=== PATIENT | female | born 1990 | race Caucasian/White ===

== ENCOUNTER 2025-03-15 19:11 | Emergency (ER) | payer OTHER, SELFPAY ==
[2025-03-15 19:20] VITALS: BP 168/119; PULSE 109; TEMP 37.2; O2SAT 97; BMI 50.1
[2025-03-15 19:31] LABS: Bilirubin Urine NEGATIVE (NEGATIVE); Blood Urine TRACE-I (NEGATIVE); Clarity Urine CLEAR (CLEAR); Color Urine LT. YELLOW (YELLOW); Glucose Urine UA NEGATIVE (NEGATIVE); Ketones Urine TRACE mg/dL (NEGATIVE); Leukocyte Esterase Urine MODERATE (NEGATIVE); Nitrite Urine NEGATIVE (NEGATIVE); Protein Urine 30 mg/dL (NEG/TRACE); Specific Gravity Urine 1.025 (1.005-1.025)
[2025-03-15 19:32] LABS: Urine Microscopic Indicated YES
--- NOTE | 2025-03-15 19:45 | ED_ITS ---
HPI - Female Genitourinary General Chief complaint: Urogenital-Female Stated complaint: UTI Time Seen by Provider: 03/15/25 19:13 Source: patient Mode of arrival: walk-in Limitations: no limitations History of Present Illness HPI Narrative: Patient is a otherwise healthy 34-year-old female presenting to the emergency department for vaginal pain. Patient stated that she went to an urgent care yesterday and was diagnosed with a urinary tract infection. She stated nobody did a pelvic exam on her any additional testing. She states that her vaginal area is extremely painful and feels like there is glass coming out. Patient states that she was given Cipro for urinary tract infection yesterday and she is taken 3 doses since then but is not having any relief. In fact, she feels like it is getting worse. Patient denies any new sexual partners. Unknown what makes worse. Nothing makes it better. Patient states is uncomfortable even just to sit. She has not taken anything for the pain. She has left-sided low back pain. She states that she has had subjective fever and chills. Related Data Home Medications ?Medication ?Instructions ?Recorded ?Confirmed ciprofloxacin HCl 250 mg tablet mg 03/15/25 Previous Rx's ?Medication ?Instructions ?Recorded doxycycline monohydrate 100 mg 100 mg PO Q12H 14 days #28 caps 03/15/25 capsule hydrocodone 5 mg-acetaminophen 325 1 tab PO Q4H PRN pa in #14 tabs 03/15/25 mg tablet hydrocodone 5 mg-acetaminophen 325 1 tab PO Q4H PRN pa in #14 tabs 03/15/25 mg tablet lidocaine HCl 2 % mucosal solution 1 applic mucous mem brane TID-QID 03/15/25 (Lidocaine Viscous) PRN pain #100 mL Allergies Allergy/AdvReac Type Severity Reaction Status Date / Time Sulfa (Sulfonamide Allergy Mild Confusion Verified 03/15/25 19:20 Antibiotics) Review of Systems ROS Status of ROS 10 or more systems reviewed and unremark able except as noted in history and below PFSH PFSH Social History Little interest or pleasure in doing things: not at all Feeling down, depressed, or hopeless: not at all Exam Narrative Exam Narrative: Prior to examining the patient, I have washed with hospital approved and provided Antiseptic Hand O And M Supervisor and have also applied gloves.? Prior to touching the patient, I asked for consent to examine the patient.? General: Alert and oriented, well nourished, mild distress. Eye: PERRL, EOMI, normal conjunctiva. HENT: Normocephalic, normal hearing, moist oral mucosa, no scleral icterus Lungs: Clear to auscultation and percussion, non-labored respiration. Heart: Normal rate, regular rhythm, no murmur, gallop or edema. Abdomen: Soft, non-tender, non-distended, normal bowel sounds, no masses. Genitourinary: The patient had right sided inguinal lymphadenitis but no lymphadenopathy. The patient had normal external female genitalia. At the introitus however there were numerous ulcerations all over the introitus. There was purulence present. Is exquisitely tender. I do not appreciate any vesicular lesions. Musculoskeletal: Normal range of motion and strength, no tenderness or swelling. Skin: Skin is warm, dry and pink, no rashes or lesions. Neurologic: Awake, alert, and oriented X3, CN II-XII intact. Psychiatric: Cooperative, appropriate mood and affect.? Following the conclusion of the examination, I have washed my hands thoroughly after removing examination gloves. Constitutional Vital Signs, click to edit/add: Last Vital Signs Temp 98.9 F 03/15/25 19:20 Pulse 109 H 03/15/25 19:20 Resp 19 03/15/25 19:20 BP 168/119 H 03/15/25 19:20 Pulse Ox 97 03/15/25 19:20 O2 Del Method Room Air 03/15/25 19:20 Course Course Hospital Course: Patient provided urine. She does have leukocytes present in the urine. The patient had a speculum exam. I informed her that there was ulcerations in her introitus area. Were going to give her Rocephin 500 mg IM, she is to to continue to take her ciprofloxacin at home. We can add doxycycline to her treatment regimen. We will give her [place] 7.5/325 while she is here and then we will call in a prescription for doxycycline, [place] as well as topical lidocaine. She is abstain from sex until these go away. She is aware that she should call her gynecologic care team tomorrow morning for an appointment later in the week. Reevaluation(s) Reevaluation #1: I had an opportunity to discuss with her gynecologic care team. They indicated that the patient should call Sunday for an appointment and they will likely follow-up with her on . Time: 19:49 Reevaluation #2: Speculum exam, tolerated well. Time: 20:39 Vital Signs Vital signs: Vital Signs Temperature 98.9 F 03/15/25 19:20 Pulse Rate 109 H 03/15/25 19:20 Respiratory Rate 19 03/15/25 19:20 Blood Pressure 168/119 H 03/15/25 19:20 Pulse Oximetry 97 03/15/25 19:20 Oxygen Delivery Method Room Air 03/15/25 19:20 Temperature 98.9 F 03/15/25 19:20 Pulse Rate 109 H 03/15/25 19:20 Respiratory Rate 19 03/15/25 19:20 Blood Pressure 168/119 H 03/15/25 19:20 Pulse Oximetry 97 03/15/25 19:20 Oxygen Delivery Method Room Air 03/15/25 19:20 MDM - Female Genitourinary MDM Narrative Medical decision making narrative: In summary, patient is a 34-year-old female with profound dysuria and vaginal pain. In further cognitive consideration the case, the patient admits that she had her use some flavored lubricant recently. Otherwise there has been no different toys or other exposures. Patient is aware that the swabs are all send out and that if we do not contact her there is nothing concerning for a sexually transmitted disease. Differential Diagnosis Differential diagnosis: Likely urinary tract infection, bacterial vaginosis, trichomoniasis, ovarian cyst, vaginitis, cystitis and dysmenorrhea Medical Records Attestation: I reviewed the patient's medical records. Lab Data Attestation: I reviewed the patient's lab results. Labs: Lab Results 03/15/25 Range/Units 19:20 Urine Color Lt. yellow (YELLOW) Urine Clarity Clear (CLEAR) Urine pH 6.0 (5.0-9.0) Ur Specific [place] 1.025 (1.005-1.025) Urine Protein 30 A (NEG/TRACE) mg/dL Urine Glucose (UA) Negative (NEGATIVE) mg/dL Urine Ketones Trace A (NEGATIVE) mg/dL Urine Occult Blood Trace-i (NEGATIVE) Urine Nitrite Negative (NEGATIVE) Urine Bilirubin Negative (NEGATIVE) Urine Urobilinogen 2.0 A (0.2-1.0) EU/dL Ur Leukocyte Esterase Moderate A (NEGATIVE) Urine RBC 2-5 A (0-2) #/HPF Urine WBC 5-10 A (NONE SEEN) #/HPF Ur Squamous Epith Cells Moderate A (NONE/RARE) #/LPF Urine Crystals Seen A (None Seen) #/HPF Amorphous Sediment Few Urine Bacteria Moderate A (NONE SEEN) #/HPF Urine Casts None seen (NONE SEEN) #/LPF Urine Mucus None seen (NONE SEEN) Ur Culture Indicated? Yes-[facility] [place] Discharge Plan Discharge Chief Complaint: Urogenital-Female Clinical Impression: Vaginitis Patient Disposition: Home, Self-Care Time of Disposition Decision: 20:42 Condition: Good Mode of Transportation: Private Vehicle Prescriptions / Home Meds: New hydrocodone-acetaminophen 5-325 mg tablet 1 tab PO Q4H PRN (Reason: pain) Qty: 14 0RF hydrocodone-acetaminophen 5-325 mg tablet 1 tab PO Q4H PRN (Reason: pain) Qty: 14 0RF lidocaine HCl [Lidocaine Viscous] 2 % solution 1 applic mucous membrane TID-QID PRN (Reason: pain) Qty: 100 0RF doxycycline monohydrate 100 mg capsule 100 mg PO Q12H 14 Days Qty: 28 0RF No Action ciprofloxacin HCl 250 mg tablet Print Language: Faroese Referrals: [facility] [Primary Care Provider, Family Practice] - 1 week Procedures ED Procedure Instructions Procedures Procedures: Patient had a supervised speculum exam with her room nurse. It was uneventful. Patient was examined and then cleaning supplies were offered to the patient and she was permitted to dress.20:39
[2025-03-15 19:50] LABS: Amorphous Sediment Urine FEW; Bacteria Urine MODERATE #/HPF (NONE SEEN); Cast Seen? NONE SEEN #/LPF (NONE SEEN); Crystals Seen? Seen #/HPF (None Seen); Mucus Urine NONE SEEN (NONE SEEN); Squamous Epithelial Cell Urine MODERATE #/LPF (NONE/RARE); Urine Culture Indicated YES-FRMC
[2025-03-15] MEDS: CEFTRIAXONE 500 MG, LIDOCAINE HCL/PF 1 ML IM (20:54)
[2025-03-15] MEDS: HYDROCODONE/ACETAMINOPHEN 7.5-325 MG/15 ML CUP 7.5 MG PO (20:54)
[2025-03-15 21:07] VITALS: BP 144/90; O2SAT 98
[2025-03-17 21:09] LABS: Neisseria gonorrhoeae, NAA Negative (Negative)
[2025-03-18 08:09] LABS: HSV-1 DNA Negative (Negative); HSV-2 DNA Positive (Negative)
== END 2025-03-15 21:11 | disposition home or self-care (01) ==
PROVIDERS: Emergency Provider Emergency Medicine; PCP Family Medicine
DX: N76.0 Acute vaginitis (principal); N39.0 Urinary tract infection, site not specified
CPT/HCPCS: 81001; 87086; 87491; 87529; 87591; 96372; 99285; J0696